=== PATIENT | female | born 1985 | race Caucasian/White ===

== ENCOUNTER 2020-11-21 19:30 | Outpatient (REF) | payer OTHER, SELFPAY | END 2020-11-21 19:31 | disposition home or self-care (01) | LOC: HO.LNP 19:30 | PROVIDERS: Visit Provider Family Medicine | DX: R30.0 Dysuria (principal) | CPT/HCPCS: 87086; 87088; 87186 ==

== ENCOUNTER 2021-03-29 10:36 | Outpatient (REF) | payer OTHER, SELFPAY ==
[2021-03-29 15:45] LABS: Influenza A PCR NEGATIVE (Negative); Influenza B PCR NEGATIVE (Negative); Resp Syncy Virus RNA Qual PCR NEGATIVE (Negative); SARS COV2 PCR INHOUSE NEGATIVE (Negative)
== END 2021-03-29 10:37 | disposition home or self-care (01) ==
LOC: HO.LAB 10:36
PROVIDERS: Visit Provider Hospitalist
DX: Z20.822 Contact with and (suspected) exposure to COVID-19 (principal); R06.00 Dyspnea, unspecified; J06.9 Acute upper respiratory infection, unspecified
CPT/HCPCS: 0241U; 36415

== ENCOUNTER 2022-02-18 11:21 | Outpatient (REF) | payer OTHER, SELFPAY | END 2022-02-18 11:22 | disposition home or self-care (01) | LOC: HO.LNP 11:21 | PROVIDERS: Visit Provider Nurse Practitioner Family | DX: N39.0 Urinary tract infection, site not specified (principal) | CPT/HCPCS: 87086; 87088; 87186 ==

== ENCOUNTER 2023-11-11 10:28 | Outpatient (REF) | payer OTHER, MEDICAID, SELFPAY ==
[2023-11-11 13:09] LABS: MANUAL DIFF FLAG NO
[2023-11-11 13:20] LABS: Basophils Percent Auto 0.7 % (0-2); Eosinophils Percent Auto 0.6 % (0-4); Hematocrit 40.6 % (37.0-47.0); Imm Gran Abs Auto 0.02 X10*3/uL (0.00-0.03); Imm Gran Pct Auto 0.4 % (0.0-0.4); Lymphocytes Absolute Auto 2.4 X10*3/uL (1.2-4.9); Lymphocytes Percent Auto 43.5 % (20-40); Mean Corpuscular Hemoglobin 27.3 pg (27.0-33.0); Mean Corpuscular Volume 85.3 fL (80.0-98.0); Mean Platelet Volume 10.8 fL (9.4-12.3); Monocytes Absolute Auto 0.4 X10*3/uL (0.1-1.2); Monocytes Percent Auto 7.2 % (2-11); Neutrophils Absolute Auto 2.6 x10*3/uL (2.0-8.3); Neutrophils Percent Auto 47.6 % (45-73); Platelet Count 328 X10*3/uL (160-400); Red Blood Count 4.76 X10*6/uL (4.20-5.50); Red Cell Distribution Width 19.1 % (11.0-16.0); White Blood Count 5.4 X10*3/uL (4.8-10.8)
[2023-11-11 13:49] LABS: C Reactive Protein < 0.04 mg/dL (< or = 0.50); Iron 76 mcg/dL (30-160); Percent Iron Saturation 24 % (15-50); Total Iron Binding Capacity 316 mcg/dL (228-428); Unsaturated Iron Binding 240 ug/dL
[2023-11-11 14:01] LABS: Erythrocyte Sedimentation Rate 4 MM/HR (0-20)
[2023-11-11 14:03] LABS: Thyroid Stimulating Hormone 0.74 uIU/mL (0.32-4.0)
[2023-11-11 14:05] LABS: Folate 13.8 ng/mL (> or = 4.0); Vitamin B12 802 pg/mL (200-900)
== END 2023-11-11 10:29 | disposition home or self-care (01) ==
LOC: HO.HHCL 10:28
PROVIDERS: Visit Provider Nurse Practitioner Family
DX: M25.59 Pain in other specified joint (principal); R53.1 Weakness; T73.2XXD Exhaustion due to exposure, subsequent encounter
CPT/HCPCS: 36415; 82607; 82746; 83540; 84443; 85025; 85652; 86140

== ENCOUNTER 2025-01-27 09:24 | Outpatient (REF) | payer OTHER, SELFPAY ==
--- OUTSIDE RECORDS SUMMARY | 2025-01-27 09:00 | XMS_ITS | Encounter Summary ---
Author Organization [employer] Address [address] [facility] 7t [place] [address] Care Team Providers Care Time Study Clerk Name Role Phone NaomieLa frias NICKI Primary Care Provider [phone] Reason for Visit * Reason Comments OBAT Encounter Details Date Type Department Care Team (Latest Contact Info) Description 01/27/2025 9:00 AM EDT Clinical Support [facility] [address] [place], [place] [phone] Agus Ram, DEEPIKA [address] [place] [address] Uncomplicated opioid dependence (CMS/HCC) (Primary Dx) Social History Tobacco Use Types Packs/Day Years Used Date Smoking Tobacco: Former Cigarettes Depression Answer Date Recorded Patient Health Questionnaire-9 Score 13 12/04/2023 Patient Health Questionnaire-9 Score 13 12/04/2023 Last PHQ-9: Questionnaire Data Not on file 0 12/04/2023 Housing Stability Answer Date Recorded What is your housing situation today? I have benoit [place] 07/04/[address] you li ve. Do you have problems with any of the following? None of the above 07/04/2023 Food Insecurity Answer Date Recorded Within the past 12 months, y ou worried that your food would run out before you got money to buy more: Never True 07/04/2023 Within the past 12 months,th e food you bought just didn't last and you didn't have enough money to get more: Never True Transportation Answer Date Recorded In the past 12 months, has l ack of transportation kept you from medical appts, meetings, work or from getting things needed for daily living? No 07/04/2023 Utilities Answer Date Recorded In the past 12 months, has t he electric, gas, oil or water company threatened to shut off services in your home? No 07/04/2023 Depression Answer Date Recorded Patient Health Questionnaire-2 Score 3 12/04/2023 Comments Unknown Sex and Gender Information Value Date Recorded Sex Assigned at Female 03/11/2022 10:38 AM EDT Legal Sex Female 10:38 AM EDT Gender Identity Female 03/11/2022 10:38 AM EDT Sexual Orientation Straight 03/11/2022 10 :38 AM EDT documented as of this encounter Progress Notes * Agus Ram RN - 01/27/2025 9:00 AM EDT Patient has been in the OBAT program for 4 years 3 months. Intake date: 11/02/20. Current Suboxone dose of 24 mg daily with appointments on an 8 week schedule. Behavioral health provider is psychiatrist Diana Ruiz thru telehealth. LFTs due, ordered. ROSALINE LOVE reviewed by provider. PCP appt 01/19/24. LAST VISIT 07/05/24 +bup, bzo, amp Kinga is here 3 days early for appt due to work schedule this week. This winter has been rough with illnesses from daycare, COVID, noro virus and colds. She is stressed about custody issues, in mediation and hoping to avoid trial. Her ex now has 1 overnight every other weekend and wants more, which makes her very anxious. Her son will be one next month and he is doing well. They are still livingwith her mom, which is going well. TODAY 01/27/25 +bup, bzo, amp, thc Kinga is here for OBAT appt. No concerns with bupe, but somehow she is off schedule with med seed cone picker at [facility]. Will transfer to [facility] pharmacy to stay on schedule. She is stable on Adderall and Xanax from psych prescriber. She is still struggling with custody issues with ex partner over 18 month old son, Mahin. Ex has him1 night a week and every other weekend Fri-Mon. [employer] reduced his child support by $100 a week, so he got what he wanted. 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 She has a good support system with her mom. She is proudly showing off pictures of Luke. Screening labs and LFTs ordered today. Plan: Suboxone dosing schedule of 24 mg daily and management of side effects reviewed. Recovery support, harm reduction (including Narcan), and behavioral health attendance reviewed. Appointment for 8 weeks given. Patient expressed understanding and agreement with continuing plan of care. This information has been disclosed to you from records protected by federal confidentiality rules (42 CFR Part 2). The federal rules prohibit you from making any further disclosure of information inthis record that identifies a patient as having or having had a substance use disorder either directly, by reference to publicly available information, or through verification of such identification by another person unless further disclosure is expressly permitted by the written consent of the individual whose information is being disclosed or as otherwise permitted by (see2.3.1). The federal rules restrict any use of the information to investigate or prosecute with regard to a crime any patient with a substance use disorder, except as provided at 2.12??(5) and 2.65. documented in this encounter Plan of Treatment Upcoming Encounters Date Type Department Care Team (Late st Contact Info) Description 03/24/2025 3:45 PM EST Office Visit [facility] [address] [place] [phone] Tea Munroe MD [address] [place], [place] [phone] Scheduled Orders Name Type Priority Associated Diagnoses Orde r Schedule Hepatitis A Antibody, Total Lab Routine Uncomplicated opioid dependence (CMS/HCC) Expected: 01/27/2025 (Approximate), Expires: 01/27/2026 Hepatitis B Core Antibody, Total Lab Routine Uncomplicated opioid dependence (CMS/HCC) Expected: 01/27/2025 (Approximate), Expires: 01/27/2026 Hepatitis B Surface Antibody, Qualitative Lab Routine Uncomplicated opioid dependence (CMS/HCC) Expected: 01/27/2025 (Approximate), Expires: 01/27/2026 Hepatitis B surface antigen, EIA Lab Routine Uncomplicated opioid dependence (CMS/HCC) Expected: 01/27/2025 (Approximate), Expires: 01/27/2026 Hepatitis C Antibody with Reflex to HCV, RNA, Quantitative, Real-Time PCR Lab Routine Uncomplicated opioid dependence (CMS/HCC) Expected: 01/27/2025 (Approximate), Expires: 01/27/2026 HIV-1/2 Antigen and Antibodies, Fourth Generation, with Reflexes Lab Routine Uncomplicated opioid dependence (CMS/HCC) Expected: 01/27/2025 (Approximate), Expires: 01/27/2026 Hepatic Function Panel Lab Routine Uncomplicated opioid dependence (CMS/HCC) Expected: 01/27/2025 (Approximate), Expires: 01/27/2026 documented as of this encounter Goals Goal Patient Goal Type Associated Problems Recent Progress Patient-Stated? Author Take your medication every day Lifestyle No Agus Ram, DEEPIKA documented as of this encounter Procedures Procedure Name Priority Date/Time Associated Diagnosis Comments POCT ALLAN-14 URINE DRUG SCREEN Routine 01/27/2025 9:06 AM EDT Uncomplicated opioid dependence (CMS/HCC) documented in this encounter Results * (ABNORMAL) POCT ALLAN-14 Urine Drug Screen (01/27/2025 9:06 AM EDT) THC Positive(A) Negative Cocaine Screen, Urine Negative Negative Opiate Screen, Urine Negative Negative Methamphetamine Screen Urine Negative Negative Amphetamine Screen, Urine Positive(A) Negative Benzodiazepines Screen, Urine Positive(A) Negative Barbiturate Screen, Urine Negative Negative Methadone Screen, Urine Negative Negative Buprenophine Screen, Urine Positive(A) Negative TCA, Urine Negative Negative MDMA Urine Negative Negative ng/mL Oxycodone Screen, Urine Negative Negative Phencyclidine (PCP), Urine Negative Negative Fentanyl, Urine Negative Negative Urine Urine specimen obtained by clean catch procedure / Unknown 01/27/2025 9:06 AM EDT Tea Munroe MD POINT OF CARE TEST ENTER/MICHAEL T ORDERABLES Final Result documented in this encounter Visit Diagnoses Diagnosis Uncomplicated opioid dependence (CMS/HCC)- Primary documented in this encounter Additional Health Concerns Assessment Noted Time PHQ-9 Depression Total Score: 13 07//2 024 3:20 PM EDT documented as of this encounter Care Teams Time Study Clerk Relationship Specialty Start Date End Date La Preston NP [address] [place] [phone] PCP - General Family Medicine 07/04/23 documented as of this encounter
--- OUTSIDE RECORDS SUMMARY | 2025-01-27 11:00 | XMS_ITS | Clinical Summary ---
Author Organization [employer] Address [address] [facility] 7t [place] [address] Care Team Providers Care Transitional Care Liaison Name Role Phone Kary La NICKI Primary Care Provider [phone] Allergies Active Allergy Reactions Criticality Noted Date Comments Mifepristone 04/16/2022 Sulfa Antibiotics 04/16/2022 Sulfadiazine 11/21/2023 Medications * This document contains information received from the source organization and may not represent a complete record from that organization. ARIPiprazole (Abilify) 5 MG tablet 04/17/20 22 Active lamoTRIgine (LaMICtal) 200 MG tablet 04/17/20 22 Active Adderall XR 15 MG 24 hr capsule Take 15 mg by mouth in the morning. 11/08/19 23 Active buprenorphine (Subtex) 2 MGIndications: Uncomplicated opioid dependence (CMS/HCC) Place 2 tablets (4 mg) under the tongue Once per day for 6 days. 12 tablet 10/24/19 24 Active ALPRAZolam (Xanax) 1 MG tabletIndicati ons:Anxiety Take 1 tablet (1 mg) by mouth if needed in the morning and at bedtime for anxiety for up to 14 days. Do not start before December 12, 2023. 28 tablet 12/12/19 24 Active cyclobenzaprin e (Flexeril) 10 MG tabletIndicati ons:Acute right-sided low back pain with right-sided sciatica Take 1 tablet (10 mg) by mouth if needed in the morning and at bedtime for muscle spasms for up to 10 days. 20 tablet 01/16/20 24 Active metoclopramide (Reglan) 10 MG tabletIndicati ons:Nausea Take 1 tablet (10 mg) by mouth if needed in the morning, at noon, and at bedtime (nausea) for up to 7 days. 20 tablet 02/07/20 24 Active Buprenorphine HCl-Naloxone HCl (Suboxone) 8-2 MG SL filmIndication s:Opioid type dependence, continuous (CMS/HCC) Place 3 Film under the tongue Once per day. 90 Film 08/04/19 25 Active buprenorphine (Subtex) 8 MGIndications: Uncomplicated opioid dependence (CMS/HCC) Place 1 tablet (8 mg) under the tongue 3 times daily. 84 tablet 1 01/28/20 25 025 Active buprenorphine (Subtex) 8 MGIndications: Uncomplicated opioid dependence (CMS/HCC) Place 1 tablet (8 mg) under the tongue 3 times daily. 84 tablet 1 11/19/19 25 025 Discontinued(Re order (will not trigger notification to Pharmacy)) buprenorphine (Subtex) 8 MGIndications: Uncomplicated opioid dependence (CMS/HCC) Place 1 tablet (8 mg) under the tongue 3 times daily. 84 tablet 1 01/14/20 25 025 Discontinued(Re order (will not trigger notification to Pharmacy)) Active Problems Problem Noted Date Diagnosed Date Strep pharyngitis 10/12/2024 Acute maxillary sinusitis 10/12/2024 Acute right-sided low back pain with right-sided sciatica 12/19/2023 Assessment & Plan (12/21/2023 8:24 PM EDT): Encouraged in person visit if pain worsens or fails to improve Prn muscle rexalor prescribed Nausea 11/25/2023 Assessment & Plan (12/21/2023 8:23 PM EDT): Prn meds refilled as nausea is persistent symptom of pt anxiety Joint pain 11/07/2023 Weakness 11/07/2023 Assessment & Plan (11/08/2023 5:07 PM EDT): Endorses feeling weak in bilateral hand curator horticultural museum and knees, labs as ordered below Fatigue due to exposure 11/07/2023 Assessment & Plan (11/08/2023 5:08 PM EDT): Labs as ordered below,follow up in 2 weeks Anemia 10/31/2023 Insomnia 10/31/2023 Rubella non-immune status, antepartum 10/31/2023 Attention deficit hyperactivity disorder (ADHD) 07/04/2023 Assessment & Plan (07/04/2023 6:25 PM EST): Currently not on medication during , plans to establish care with ob Tobacco use disorder 07/04/2023 Assessment & Plan (02/07/2024 6:10 PM EDT): Not motivated to quit at this time Assessment & Plan (11/08/2023 5:07 PM EDT): Smoking currently, declines asssistance Assessment & Plan (07/04/2023 6:28 PM EST): Down to 1-2 cigarettes per day, plans to quit before delivery Anxiety 07/04/2023 Assessment & Plan (02/07/2024 6:10 PM EDT): Reviewed importance of sparing usage due to potential med interactions with reglan Assessment & Plan (12/21/2023 8:23 PM EDT): Pt has now establish with new psychiatric provider who will continue medications Assessment & Plan (11/08/2023 5:06 PM EDT): New parent, baby thriving, increased stress as psychiatrist is retiring and has not met new one Assessment & Plan (07/04/2023 6:29 PM EST): Stable in care with psychiatry, psychiatry is planning to retire, pt is establishing with [facility], is worried about future rx, explained with care coordination with psychiatry and ob there is the potential for rx to be temporarily prescribed by pcp, however, encouraged establishing with n as I rarely continue benzodiazeapams for longer than 3 months without psychiatry input Major depressive disorder 04/16/2022 Assessment & Plan (12/04/2023 3:40 PM EDT): PROGRESS NOTE: ID: Kinga is a 38 y.o. White straight-identified cis-female with previous documented hx of Depression, Anxiety, ADHD/ADD, and Substance Use Disorder services including OP Psychotherapy psychopharmacology who presents for Depression, Anxiety, and ADHD During IBH Consult Kinga presenting with depressed mood, loss of interests/pleasure , changes in sleep difficulty falling asleep and difficulty staying asleep , trouble concentrating, fatigue/loss of energy, inappropriate guilt , excessive worry/anxiety, difficulty controlling worry, restless/keyed up/On edge, easily fatigued, difficulty concentrating/Mind going blank , irritability, muscle tension, and sleep disturbance difficulty falling asleep and difficulty staying asleep , Difficulty with attention, Difficulty completing tasks/jumping between tasks or activities, Difficulty with focus, Easily distracted, Forgetful, and Talkative, and cravings and urges to use, engaged in OBAT, has been sober for 11 years taking 16mg of suboxone/day, in regard to Opioids and Tobacco; for a period of 18+ mo, for all symptoms in the context of divorce/separation, financial concern, recent move, and concern about custody court case. PLAN: Continue with current services (defined as services in the past 12 months) Behavioral Health Integration Plan Internal Follow up with [facility] Patient Self Plan Patient to utilize skills provided in intervention , Patient to reach out to [facility] team as needed, Comply with medication , Patient to engage in OP therapy , and Patient to reach out to HC as needed Assessment & Plan (07/04/2023 6:21 PM EST): Stable in remission, not currently on medication Opioid dependence 04/16/2022 Assessment & Plan (07/04/2023 6:21 PM EST): Stable on subutex during preganancy, followed by CR Resolved Problems Problem Noted Date Diagnosed Date Resolved Date Cigarette smoker 10/31/2023 12/04/2023 36 weeks gestation of 07/04/2023 01/19/2024 Assessment & Plan (07/04/2023 6:21 PM EST): In care with ob Encounters Date Type Department Care Team Description 01/27/2025 9:00 AM EDT Clinical Support [facility] [address] [place] [phone] Agus Ram RN Uncomplicated opioid dependence ([facility]/HCC) (Primary Dx) 01/27/2025 Refill [facility] [address] [place] [phone] Tea Munroe MD Uncomplicated opioid dependence (CMS/HCC) 01/27/2025 Travel 01/12/2025 Refill [facility] [address] [place] [phone] Tea Munroe MD Opioid type dependence, continuous (CMS/HCC); Uncomplicated opioid dependence ([facility]/HCC) 11/17/2024 Refill [facility] [address] [place] [address] Tea Munroe MD Uncomplicated opioid dependence ([facility]/HCC) 11/15/[address] [address] Agus Ram RN 11/09/[address] [address] La Preston NP Nurse Triage from Last 3 Months Immunizations Immunization Administration Dates Next Due Influenza, IIV3, injectable 02/17/2023 MMR 08/11/2023 Moderna Covid-19 Vaccine 12+ 09/12/2020 Pfizer Covid-19 Vaccine 12+ 09/11/2020 Tdap 05/13/2023 Social History Tobacco Use Types Packs/Day Years Used Date Smoking Tobacco: Former Cigarettes Tobacco Cessation:Counseling Given: Not Answered Depression Answer Date Recorded Patient Health Questionnaire-9 [...] Orientation Straight 03/11/2022 10 :38 AM EDT Last Filed Vital Signs Vital Sign Reading Time Taken Comments Blood Pressure 107/68 10/12/2024 1:48 PM EDT Pulse 62 10/12/2024 1:48 PM EDT Temperature 36.9 C (98.5 F) 10/12/2024 1:48 PM EDT Respiratory Rate 18 10/12/2024 1:48 PM EDT Oxygen Saturation 99% 10/12/2024 1:48 PM EDT Inhaled Oxygen Concentration - - Weight 58.1 kg (128 lb) 10/12/2024 1:48 PM EDT Height 172.7 cm (5' 8 ) 11/07/2023 4:04 PM EDT Body Mass Index 19.46 11/07/2023 4:04 PM EDT Plan of Treatment Upcoming Encounters Date Type Department Care Team (Late st Contact Info) Description 03/24/2025 3:45 PM EST Office Visit [facility] [address] [place] [address] Tea Munroe MD [address] [place] [address] Health Maintenance Due Date Last Done Comments HIV Screening 1987 Disability Screening 1987 Alcohol/Substance Use Screening 1999 Family Planning (PISQ) 2002 HPV Vaccines (1 - 3-dose series) 2002 Hepatitis C Screening 2005 Hepatitis B Vaccines (1 of 3 - 19+ 3-dose series) 2006 Depression Monitoring 06/05/2024 12/04/2023, 024 SDOH Screening 07/04/2024 07/04/2023 COVID-19 Vaccine ( season) 2025 10/10/2021, 09/12/2020, 09/11/2020, Additional history exists Influenza Vaccine (#1) 2025 02/17/2023, 2022 Tobacco Screening 05/13/2025 05/13/2024 Cervical Cancer Screening 01/21/2028 HPV/Cotest 01/21/2028 01/20/2023 Pap Smear 01/21/2028 01/20/2023 DTaP/Tdap/Td Vaccines (2 - Td or Tdap) 05/13/2033 05/13/2023 Zoster Vaccines (1 of 2) 2037 RSV Patients and Patients Aged 60 years or older (1 - 1-dose 75+ series) 2062 HIB Vaccines Aged Out No longer eligi ble based on patient's age to complete this topic Hepatitis A Vaccines Aged Out No long er eligible based on patient's age to complete this topic IPV Vaccines Aged Out No longer eligi ble based on patient's age to complete this topic Meningococcal B Vaccine Aged Out No l onger eligible based on patient's age to complete this topic Meningococcal Vaccine Aged Out No radhika jacqueline eligible based on patient's age to complete this topic Pneumococcal Vaccine: Pediatrics (0 to 5 Years) and At-Risk Patients (6 to 49) Years Aged Out No longer eligible based on patient's age to complete this topic RSV under 20 months Aged Out No longe r eligible based on patient's age to complete this topic Rotavirus Vaccines Aged Out No longer eligible based on patient's age to complete this topic Goals Goal Patient Goal Type Associated Problems Recent Progress Patient-Stated? Author Take your medication every day Lifestyle No Agus Ram, field training manager Procedure Name Priority Date/Time Associated Diagnosis Comments POCT ALLAN-14 URINE DRUG SCREEN Routine 01/27/2025 9:06 AM EDT Uncomplicated opioid dependence (CMS/HCC) PAP/HPV Routine 01/20/2023 from Last 3 Months or Most Recently Relevant to Health Maintenance Results * (ABNORMAL) POCT ALLAN-14 Urine Drug [...] CARE TEST ENTER/MICHAEL T ORDERABLES Final Result * PAP/HPV (01/20/2023) Pap Negative for intraephithelial lesion or malignancy Negative for intraephithelial lesion or malignancy, Epithelial cell abnormality HPV Not Detected Undetected, Indeterminate, Quantitative, Not Detected [facility] Provider HEALTH MAINTENANCE Final Result from Last 3 Months or Most Recently Relevant to Health Maintenance Insurance [facility] Care Teams Transitional Care Liaison Relationship Specialty Start Date End Date La Preston NP [address] [place] [phone] PCP - General Family Medicine 07/04/23
--- OUTSIDE RECORDS SUMMARY | 2025-01-27 11:00 | XMS_ITS | Encounter Summary ---
Author Organization [employer] Address [address] [facility] [address] [place] [address] Care Team Providers Care Food Products Sales Representative Name Role Phone Kary La NICKI Primary Care Provider [phone] Reason for Visit * Reason Onset Date Comments Med Refill 01/27/2025 Encounter Details Date Type Department Care Team ([facility] st Contact Info) Description 01/27/2025 Refill [facility] [address] [place], [place] [phone] Tea Munroe MD [address] [place] [address] Uncomplicated opioid dependence (CMS/HCC) Social History Tobacco Use Types Packs/Day Years [...] AM EDT documented as of this encounter Plan of Treatment Upcoming Encounters Date Type Department Care Team (Late st Contact Info) Description 03/24/2025 3:45 PM EST Office Visit [facility] [address] [place], [place] [phone] Tea Munroe MD [address] [place], [place] [phone] documented as of this encounter Goals Goal Patient Goal Type Associated Problems Recent Progress Patient-Stated? Author Take your medication every day Lifestyle No Agus Ram, RN documented as of this encounter Visit Diagnoses Diagnosis Uncomplicated opioid dependence (CMS/HCC) documented in this encounter Additional Health Concerns Assessment Noted Time PHQ-9 Depression Total Score: 13 024 3:20 PM EDT documented as of this encounter Care Teams Food Products Sales Representative Relationship Specialty Start Date End Date La Preston NP [address] [place], [place] [phone] PCP - General Family Medicine 07/04/23 documented as of this encounter
--- OUTSIDE RECORDS SUMMARY | 2025-01-27 11:00 | XMS_ITS | Encounter Summary ---
Author Organization [employer] Address [address] [facility] 7t [place] [address] Care Team Providers Care Curator Of Photography And Prints Name Role Phone La Preston NP Primary Care Provider [phone] Reason for Visit * Reason Onset Date Comments Returning Call 12/19/2023 Encounter Details Date Type Department Care Team ([facility] st Contact Info) Description 12/19/2023 Telephone [facility] [address] [place], [place] [phone] La Preston NP [address] [place], [place] [phone] Returning Call Social History Tobacco Use Types Packs/Day Years [...] t he electric, gas, oil or water [employer] threatened to shut off services in your home? No 07/04/2023 Depression Answer Date Recorded Patient Health Questionnaire-2 Score 3 12/04/2023 Comments Unknown Sex and Gender Information Value Date Recorded Sex Assigned at Female 03/11/2022 10:38 AM EDT Legal Sex Female 10:38 AM EDT Gender Identity Female 03/11/2022 10:38 AM EDT Sexual Orientation Straight 03/11/2022 10 :38 AM EDT documented as of this encounter Miscellaneous Notes * Telephone Encounter - Kevyn Velazquez - 12/19/2023 12:58 PM EDT Tc from pt stating she received a call unsure if it was regarding upcoming appt today with pcp. Buttonhole Maker Hand saw nothing documented advised will leave message in chartjust in case. documented in this encounter Plan of Treatment Upcoming Encounters Date Type Department Care Team (Late st Contact Info) Description 03/24/2025 3:45 PM EST Office Visit [facility] [address] [place] [address] Tea Munroe MD [address] [place] [address] documented as of this encounter Visit Diagnoses Not on filedocumented in this encounter Additional Health Concerns Assessment Noted Time PHQ-9 Depression Total Score: 13 024 3:20 PM EDT documented as of this encounter Care Teams Curator Of Photography And Prints Relationship Specialty Start Date End Date La Preston NP [address] [place] [address] PCP - General Family Medicine 07/04/23 documented as of this encounter
--- OUTSIDE RECORDS SUMMARY | 2025-01-27 11:00 | XMS_ITS | Encounter Summary ---
Author Organization [employer] Address [address] [facility] [address] [place] [address] Care Team Providers Care Clinical Support Tech Name Role Phone La Preston NICKI Primary Care Provider [phone] Encounter Details Date Type Department Care Team (Latest Contact Info) Description 01/27/2025 Travel Social History Tobacco Use Types Packs/Day Years [...] Description 03/24/2025 3:45 PM EST Office Visit [facility] [address] [place] [address] Tea Munroe MD [address] [place] [address] documented as of this encounter Goals Goal Patient Goal Type Associated Problems Recent Progress Patient-Stated? Author Take your medication every day Lifestyle No Agus Ram, RN documented as of this encounter Visit Diagnoses Not on filedocumented in this encounter Additional Health Concerns Assessment Noted Time PHQ-9 Depression Total Score: 13 12/03/ 024 3:20 PM EDT documented as of this encounter Care Teams Clinical Support Tech Relationship Specialty Start Date End Date La Preston NP [address] [place] [address] PCP - General Family Medicine 07/04/23 documented as of this encounter
--- OUTSIDE RECORDS SUMMARY | 2025-01-27 11:00 | XMS_ITS | Patient Health Record ---
Author Organization [employer] [facility] Address [address] [address] Care Team Providers Care Contract Management Specialist Name Role Phone Akanksha Keller Unavailable [phone] Allergies Allergen (clinical drug ingredient) Drug/Non Drug Allergy documented on EMR Reaction Allergy Type Onset Date Status Zofran Unknown Drug Allergy Active Reason For Referral No Information Medications Medication SIG (Take, Route, Frequency, Duration) Notes Start Date End Date Status Vitamin 27-0.8 MG 1 tablet Orally Once a day; Duration: 30 day(s) Active Ambien 10 MG Orally prn uses half when needed Active metroNIDAZOLE 0.75 % 1 applicatorful at bedtime Vaginal Once a day; Duration: 5 day(s) 12/28/2020 Active Norethin Mina-Eth Estrad-FE 1.5-30 MG-MCG 1 tablet Orally Once a day; Duration: 28 day(s) 11/15/2019 Active Xanax 1.5 MG daily Active Social History Tobacco Use: Social History Observation Description Date Details (start date - stop date) Current Smoker NA - NA Tobacco Use/Smoking Question Answer Notes Are you a current smoker How often do you smoke cigarettes? every day How many cigarettes a day do you smoke? 6-10 How soon after you wake up do you smoke your fir st cigarette? 31-60 minutes Are you interested in quitting? Ready to quit Alcohol Screen (Audit-C) Question Answer Notes Did you have a drink contain ing alcohol in the past year? Yes How often did you have a dri nk containing alcohol in the past year? Monthly or less (1 point) How many drinks did you have on a typical day when you were drinking in the past year? 1 or 2 drinks (0 point) How often did you have 6 or more drinks on one occasion in the past year? Never (0 point) Points 1 Interpretation Negative Section Notes: Marital status: single Occupation: student, employed full-time Nutrition: good diet Exercise: occasional cardio Sexual activity: monogamous relationship. regular condom use, careful partner selection Heterosexual Contraception: Nuvaring .CE: Smoking: Current smoker .CE: Smoking Amount: 1/2 PPD .CE: Alcohol: rare alcohol Text messaging while driving: no Illicit drugs: no Seatbelt: yes Marital status: single Occupation: student, employed full-time Nutrition: good diet Exercise: occasional cardio Sexual activity: monogamous relationship. regular condom use, careful partner selection Heterosexual Contraception: Nuvaring .CE: Smoking: Current smoker .CE: Smoking Amount: 1/2 PPD .CE: Alcohol: rare alcohol Text messaging while driving: no Illicit drugs: no Seatbelt: yes Marital status: single Occupation: student, employed full-time Nutrition: good diet Exercise: occasional cardio Sexual activity: monogamous relationship. regular condom use, careful partner selection Heterosexual Contraception: Nuvaring Marital status: single Occupation: student, employed full-time Nutrition: good diet Exercise: occasional cardio Sexual activity: monogamous relationship. regular condom use, careful partner selection Heterosexual Contraception: Nuvaring Problems Problem Type SNOMED Code ICD Code Onset Dates Problem Status W/U Status Risk Notes Problem Insomnia (690478038) Insomnia, unspecified (780.52) Active confirmed Major Plan Of Treatment Pending Test Test Name Order Date Test, Urine 01/31/2020 Urinalysis 11/24/2018 Urinalysis 12/07/2018 Ultrasound : (OB) First Trimester 2019 ABO AND RH 02/09/2020 ENDO/VAG ULTRASOUND OB 02/15/2020 Insurance Providers Payer Name Payer Address Payer Phone Subscriber Number Group Number Insured Name Patient Relationship to Insured Coverage Start Date Coverage End Date [facility] [address] [address] [place] [id number] SRUTHI MAYBERRY Self - patient is the insured Medical (General) History Medical History History ICD Code Insomnia, unspecified Surgical History Surgery Date(Month/Year) D+C tonsillectomy
[2025-01-27 12:08] LABS: Alanine Aminotransferase 15 U/L (0-31); Albumin Level 4.6 g/dL (3.5-5.0); Alkaline Phosphatase 68 U/L (39-117); Aspartate Amino Transferase 21 U/L (5-31); Total Protein 7.4 g/dL (6.5-8.0)
[2025-01-27 12:26] LABS: HBS Num1 17.14 mIU/mL (0-7.99); HBc Num1 0.08 S/CO (0.00-0.79); HBsAGNum1 0.55 S/CO (0.00-0.99); HIV Num 1 0.07 S/CO (0.00-0.99); Hepatitis B Surface Antigen Negative (Negative); ~HepC Num1 0.10 S/CO (0.00-0.79); ~Hepatitis B Surface Antibody REACTIVE (Nonreactive); ~Hepatitis C Antibody Nonreactive (Nonreactive)
[2025-01-28 09:37] LABS: ~Hepatitis A Antibody IgG 1.01 S/CO (0.00-0.99)
== END 2025-01-27 09:25 | disposition home or self-care (01) ==
LOC: HO.HHCL 09:24
PROVIDERS: PCP Nurse Practitioner Family; Visit Provider Family Medicine
DX: F11.20 Opioid dependence, uncomplicated (principal)
CPT/HCPCS: 36415; 80076; 86704; 86706; 86708; 86803; 87340; 87389